=== PATIENT | female | born 1970 | race Caucasian/White ===

== ENCOUNTER 2023-11-27 23:36 | Emergency (ER) | payer BC ==
[2023-11-28] MEDS: LORazepam 1 MG Tab PO ONE (00:05)
[2023-11-28] MEDS: Lidocaine 1% with EPINEPHrine 1:100,000 20 ML MDV INFILT PRN (00:45)
== END 2023-11-28 01:36 | disposition home or self-care (01) ==
LOC: VM.ED 23:36
DX: S09.90XA Unspecified injury of head, initial encounter (principal); S01.81XA Laceration without foreign body of other part of head, initial encounter; S80.211A Abrasion, right knee, initial encounter; W22.8XXA Striking against or struck by other objects, initial encounter; Y93.01 Activity, walking, marching and hiking
CPT/HCPCS: 12015; 70450; 99283; 99284; A9270; J3490